=== PATIENT | male | born 1985 | race Caucasian/White ===

== ENCOUNTER 2022-02-25 14:29 | Emergency (ER) | payer OTHER, SELFPAY ==
--- NOTE | ~2022-02-25 | XR_ITS ---
XR knee RT min 4V 02/25/2022 15:23 INDICATION: Right knee pain PROCEDURE: 4 views right knee COMPARISON: No prior studies for comparison. FINDINGS: Fracture, dislocation or subluxation is not identified. No significant joint effusion. The soft tissues appear within normal limits. No foreign bodies are identified. IMPRESSION: 1: NO ACUTE BONE OR JOINT ABNORMALITY IDENTIFIED. Reviewed, dictated and finalized at location A.
[2022-02-25 14:49] VITALS: BP 125/68; PULSE 54; RESP 18; TEMP 36.4; O2SAT 100
--- NOTE | 2022-02-25 15:13 | ED.LOWEXIN ---
HPI - Extremity Injury (Lower) General Chief Complaint: Extremity Injury, Lower Stated Complaint: rt knee pain History of Present Illness HPI Narrative: Jadiel Romano is a36 yo male with no PMH who [facility] days of pain after injuring leg and a weight lifting/squatting workout at [facility]. He is in the and they are doing a fit program and when he does certain movements his right knee begins to ache and he is unable to complete the movement. Related Data Home Medications Medication Instructions Recorded Confirmed No Home Medications 02/25/22 02/25/22 Allergies Allergy/AdvReac Type Severity Reaction Status Date / Time No Known Allergies Allergy Verified 02/25/22 15:11 Review of Systems Review of Systems: CONSTITUTIONAL: Denies fever, chills, sweats. EYES: Denies visual changes, redness, discharge. ENT: Denies rhinorrhea, congestion, sore throat, otalgia. CARDIOVASCULAR: Denies chest pain, palpitations, edema. RESPIRATORY: Denies dyspnea, wheezing, cough GASTROINTESTINAL: Denies abdominal pain, nausea, vomiting, diarrhea. GENITOURINARY: Denies dysuria, hematuria, abnormal discharge SKIN: Denies rash or itching. NEUROLOGIC: Denies numbness, or focal weakness. PSYCHIATRIC: Denies anxiety or depression. Right knee pain that is positional in nature PMFSH Social History Social History (Updated 02/25/22 @ 15:21 by Nicole Crenshaw CNP) Smoking status: Never smoker Alcohol intake: current Comments At time of signature, I agree with nursing past medical, surgical, social and family history. There is no relevant family history pertinent to the presenting complaint. Exam Narrative: GENERAL: This is a well-nourished, well-developed patient, in mild distress. HEAD: normocephalic, atraumatic. EYES: Sclera clear/white. Vision is grossly intact. EARS: External ears normal, . Hearing grossly intact. NOSE: External nose normal THROAT: Mucous membranes moist, NECK: Neck supple, non-tender CARDIOVASCULAR: Regular rate and rhythm without murmurs, gallops, or rubs. RESPIRATORY: Clear to auscultation. Breath sounds equal bilaterally. No wheezes, rales, or rhonchi. GASTROINTESTINAL: Not done, SKIN: warm, intact with no suspicious lesions or rash, good texture and turgor. NEURO: awake, alert, and oriented to person, place and time. There were no obvious focal neurologic abnormalities. Steady gait EXTREMITIES: Normal range of motion. Able to walk. Right knee is painful when moves in lunge position or push upward on patella. able to move vulgus/varus with no pain BACK: Nontender without deformity Course Course Emergency Course: Patient here for evaluation of right knee pain Right knee shows no acute bone or joint abnormality, no significant joint effusion the soft tissue appears within normal limits Patient sent back to [facility] with recommendation for MRI of his right knee and follow-up with orthopedics; encouraged to use ibuprofen and ice to control pain Level of Care: Express Care Visit Vital Signs Vital signs: Vital Signs Temperature 97.5 F L 02/25/22 14:49 Pulse Rate 54 L 02/25/22 14:49 Respiratory Rate 18 02/25/22 14:49 Blood Pressure 125/68 02/25/22 14:49 Pulse Oximetry 100 02/25/22 14:49 Oxygen Delivery Room Air 02/25/22 14:49 Temperature 97.5 F L 02/25/22 14:49 Pulse Rate 54 L 02/25/22 14:49 Respiratory Rate 18 02/25/22 14:49 Blood Pressure 125/68 02/25/22 14:49 Pulse Oximetry 100 02/25/22 14:49 Oxygen Delivery Room Air 02/25/22 14:49 MDM - Extremity Injury (Lower) Differential Diagnosis Differential diagnosis: Likely acute internal derangement of knee, fracture of hip and other Critical Care Time Critical Care Time Critical Care Time: No Discharge Plan Discharge Clinical Impression: Right medial knee pain Patient Disposition: Home, Self-Care Condition: Stable Instructions: Knee Pain (ED)
== END 2022-02-25 16:16 | disposition home or self-care (01) ==
PROVIDERS: Emergency Provider Nurse Practitioner
DX: M25.561 Pain in right knee (principal)
CPT/HCPCS: 73564; 99213; G0463